=== PATIENT | female | born 1955 | race Caucasian/White ===

== ENCOUNTER 2018-05-20 10:06 | Day surgery (SDC) | payer OTHER ==
[~2018-05-20 10:06] MED LIST: LACTATED RINGERS 1,000 ML IV.SOLN IV ONE; MIDAZOLAM HCL 2 MG/2 ML VIAL ONE; fentaNYL CITRATE/PF 100 MCG/2 ML INJ. ONE
== END 2018-05-20 13:40 | disposition home or self-care (01) ==
LOC: OPSURG 10:06
PROVIDERS: ATTEND Physical Medicine & Rehabilitation
DX: M54.5 Low back pain (principal); M25.562 Pain in left knee
CPT/HCPCS: 63650; J2250; J3010; J7120

== ENCOUNTER 2018-08-05 09:22 | Day surgery (SDC) | payer OTHER ==
[~2018-08-05 09:22] MED LIST changes: +0.9 % SODIUM CHLORIDE PF 10 ML VIAL IJ ONE; +BACITRACIN 50,000 UNIT VIAL IR ONE; +DEXAMETHASONE SODIUM PHOSPHATE 10 MG/ML VIAL ONE; +LIDOCAINE HCL 1%/EPI. (1:100,000) MDV 20ML VIAL IJ ONE; +LIDOCAINE HCL 2% PF 100MG/5ML VIAL IJ ONE; +NORMAL SALINE 1,000 ML IV.SOLN IV ONE; +ONDANSETRON HCL/PF 4 MG/ 2ML VIAL ONE; +PROPOFOL 200 MG/20 ML VIAL IV ONE; +ROCURONIUM BROMIDE 10 MG/ML 5ML VIAL ONE; +SEVOFLURANE 250 ML LIQUID IH ONE; +SUGAMMADEX SODIUM 200 MG/2 ML VIAL IV ONE; +ceFAZolin SODIUM 1 GM VIAL ONE; +ePHEDrine SULFATE 50 MG/1 ML IVP ONE; -fentaNYL CITRATE/PF 100 MCG/2 ML INJ. ONE
== END 2018-08-05 14:00 | disposition home or self-care (01) ==
LOC: OPSURG 09:22
PROVIDERS: ATTEND Physical Medicine & Rehabilitation
DX: M25.561 Pain in right knee (principal); M25.562 Pain in left knee
CPT/HCPCS: J0690; J2001; J2250; J2405; J2704; J3490; J7030; J7120